=== PATIENT | female | born 1975 | race Hispanic/Latino ===

== ENCOUNTER 2019-04-03 12:17 | Emergency (ER) | payer BC ==
[2019-04-03 12:29] VITALS: BP 147/64
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
[2019-04-03] MEDS ORDERED: ONDANSETRON 4 MG/2 ML INJ IM ONE (15:53)
[2019-04-03] MEDS ORDERED: KETOROLAC 30 MG/1 ML INJ IM ONE (15:53)
== END 2019-04-03 16:23 | disposition home or self-care (01) ==
LOC: ED 12:17
DX: R51 Headache (principal); M79.18 Myalgia, other site; I10 Essential (primary) hypertension; G43.909 Migraine, unspecified, not intractable, without status migrainosus; F32.9 Major depressive disorder, single episode, unspecified
CPT/HCPCS: 70450; 72125; 96372; 99283; J1885; J2405

== ENCOUNTER 2019-04-10 13:58 | Outpatient (CLI) | payer BC ==
--- NOTE | 2019-04-10 17:38 | XRay Report ---
CERVICAL SPINE 3 VIEWS INDICATION / CLINICAL INFORMATION: M54.2 NECK PAIN. COMPARISON: CT dated 04/03/19 FINDINGS: VERTEBRAE: No acute fracture. No significant malalignment. No significant change. DISC SPACES / FACET JOINTS:No significant abnormality. PARASPINAL SOFT TISSUES:No significant abnormality. ADDITIONAL FINDINGS: None. Signer Name: Lee Jackson MD Signed: 04/10/2019 5:34 PM Workstation Name: [id number]
--- NOTE | 2019-04-10 17:39 | XRay Report ---
THORACIC SPINE 2 VIEWS INDICATION / CLINICAL INFORMATION: M54.6 ACUTE MIDLINE THORACIC BACK PAIN. COMPARISON: None available. FINDINGS: VERTEBRAE: No acute fracture. No significant malalignment. DISC SPACES / FACET JOINTS:No significant abnormality. PARASPINAL SOFT TISSUES:No significant abnormality. ADDITIONAL FINDINGS: None. Signer Name: Lee Jackson MD Signed: 04/10/2019 5:35 PM Workstation Name: [id number]
--- NOTE | 2019-04-10 17:40 | XRay Report ---
LUMBAR SPINE 3 VIEWS INDICATION / CLINICAL INFORMATION: M54.5 ACUTE MIDLINE LOW BACK PAIN WITHOUT SCIATICA. COMPARISON: None available. FINDINGS: VERTEBRAE: No acute fracture. No significant malalignment. DISC SPACES / FACET JOINTS:Mild facet arthropathy at L4-5 and L5-S1. PARASPINAL SOFT TISSUES:No significant abnormality. 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 Signer Name: Lee Jackson MD Signed: 04/10/2019 5:35 PM Workstation Name: [id number]
== END 2019-04-10 13:59 | disposition home or self-care (01) ==
LOC: XRAY 13:58
PROVIDERS: ATTEND Internal Medicine
DX: M54.2 Cervicalgia (principal); M54.5 Low back pain; M54.6 Pain in thoracic spine; Z88.8 Allergy status to other drugs, medicaments and biological substances
CPT/HCPCS: 72040; 72070; 72100

== ENCOUNTER 2019-04-15 12:17 | Emergency (ER) | payer BC ==
[2019-04-15 12:28] VITALS: BP 149/64
--- NOTE | 2019-04-15 12:47 | Event Note ---
ED Screening Note ED Screening Note: PMHx migraines takes excedrin, tylenol c/o frontal CALZADA that began this morning +photophobia no vomiting no fever no numbness or weakness This initial assessment/diagnostic orders/clinical plan/treatment(s) is/are subject to change based on patients health status, clinical progression and re-assessment by fellow clinical providers in the ED. Further treatment and workup at subsequent clinical providers discretion. Patient/guardian urged not to elope from the ED as their condition may be serious if not clinically assessed and managed.
[2019-04-15] MEDS ORDERED: KETOROLAC 30 MG/1 ML INJ IV ONE (13:39)
[2019-04-15] MEDS ORDERED: diphenhydrAMINE 50 MG/ML VIAL IV ONE (13:39)
[2019-04-15] MEDS ORDERED: SODIUM CHLORIDE 0.9% 1000 ML 1,000 ML IV ONE (13:39)
[2019-04-15] MEDS ORDERED: METOCLOPRAMIDE 10 MG/2 ML INJ IV ONE (13:39)
--- NOTE | 2019-04-15 14:40 | Emergency Department Report ---
ED Headache HPI - General Chief Complaint: Headache Stated Complaint: MIGRANE Time Seen by Provider: 04/15/19 12:46 - History of Present Illness Initial Comments: This is a 43-year-old female nontoxic, well nourished in appearance, no acute signs of distress presents to the ED with c/o of acute on chronic headache. Patient was seen last week and had a CT scan of head that was within normal limits. Patient describes headache as diffuse with level of 8 out of 10. Patient denies thunderclap headache. Patient denies any radiation of pain. Patient denies any head trauma. Patient denies any visual changes. Patient denies worse headache. Patient stated that darkness makes headache better and bright lights make the headache worse. Patient denies any numbness, tingling, fever, chills, nausea, vomiting, chest pain, shortness of breath, stiff neck. Patient denies facial drooping or one sided weakness. Patient denies any radiation of pain. Patient stated allergies to adhesive tape, oxycodone and lisinopril. Past medical history includes migraine headaches. Timing/Duration: episodic Quality: mild, achy Head Injury Location: other (diffuse) Recent Head Trauma: occasional headaches Associated Symptoms: denies symptoms. denies: confusion, fatigue, facial pain, fever/chills, flushing, loss of consciousness, nausea/vomiting, nasal congestion, nasal drainage, numbness in legs/feet, rash, seizures, sinus infection, stiff neck, vision changes, weakness Allergies/Adverse Reactions: Allergies adhesive tape Allergy (Verified 04/15/19 12:26) Rash oxycodone [From OxyContin] Allergy (Verified 04/15/19 12:26) Unknown lisinopril Adverse Reaction (Verified 04/15/19 12:26) Unknown Home Medications: Ambulatory Orders Ondansetron [Zofran Odt] 4 mg PO Q8HR #12 tab.rapdis 04/03/19 Butalb/Acetaminophen/Caffeine [Fioricet 50-300-40 mg CAP] 1 cap PO Q6HR PRN #12 cap 04/15/19 ED Review of Systems ROS: Stated complaint: MIGRANE Other details as noted in HPI Constitutional: denies: chills, fever Eyes: denies: eye pain, eye discharge, vision change ENT: denies: ear pain, throat pain Respiratory: denies: cough, shortness of breath, wheezing Cardiovascular: denies: chest pain, palpitations Endocrine: no symptoms reported Gastrointestinal: denies: abdominal pain, nausea, diarrhea Genitourinary: denies: urgency, dysuria, discharge Musculoskeletal: denies: back pain, joint swelling, arthralgia Skin: denies: rash, lesions Neurological: headache. denies: weakness, paresthesias Psychiatric: denies: anxiety, depression Hematological/Lymphatic: denies: easy bleeding, easy bruising ED Past Medical Hx - Past Medical History Hx Hypertension: Yes Hx Headaches / Migraines: Yes Hx Psychiatric Treatment: Yes (ANXIETY,DEPRESSION) - Surgical History Hx Appendectomy: Yes Additional Surgical History: Gastric bypass - Social History Smoking Status: Never Smoker Substance Use Type: None - Medications Home Medications: Home Medications Medication Instructions Recorded Confirmed Last Taken Type Ondansetron [Zofran Odt] 4 mg PO Q8HR #12 tab.rapdis 04/03/19 Unknown Rx Butalb/Acetaminophen/Caffeine 1 cap PO Q6HR PRN #12 cap 04/15/19 Unknown Rx [Fioricet 50-300-40 mg CAP] ED Physical Exam - General Limitations: No Limitations General appearance: alert, in no apparent distress - Head Head exam: Present: atraumatic, normocephalic - Eye Eye exam: Present: normal appearance, PERRL, EOMI - Neck Neck exam: Present: normal inspection, full ROM. Absent: tenderness, meningismus, lymphadenopathy - Extremities Exam Extremities exam: Present: normal inspection, full ROM - Back Exam Back exam: Present: normal inspection, full ROM. Absent: tenderness, CVA tenderness (R), CVA tenderness (L), muscle spasm, paraspinal tenderness, vertebral tenderness, rash noted - Neurological Exam Neurological exam: Present: alert, oriented X3, normal gait - Expanded Neurological Exam Expanded Patient oriented to: Present: person, place, time Cranial nerves: EOM's Intact: Normal, Facial Sensation: Normal Cerebellar function: Finger to Nose: Normal Upper motor neuron: Sensory Extinction: Normal Motor strength exam: RUE: 5, LUE: 5, RLE: 5, LLE: 5 Best Eye Response ([place]): (4) open spontaneously Best Motor Response ([place]): (6) obeys commands Best Verbal Response ([place]): (5) oriented [place] Total: 15 - Psychiatric Psychiatric exam: Present: normal affect, normal mood - Skin Skin exam: Present: warm, dry, intact, normal color. Absent: rash ED Course Vital Signs 04/15/19 12:27 Temperature 97.7 F Pulse Rate 63 Respiratory 19 Rate Blood Pressure 149/64 O2 Sat by Pulse 98 Oximetry - Reevaluation(s) Reevaluation #1: 04/15/19 15:02 Patient is speaking in full sentences with no signs of distress noted. ED Medical Decision Making - Medical Decision Making This is a 43-year-old female that presents with migrane headache. Patient is stable and was examined by me. Patient is neurologically stable. There is no stiff neck or neck pain. Vital signs are stable. Patient is afebrile. CT scan has been reviewed from a few weeks ago within normal limits. Patient received Benadryl, Reglan, Toradol, and 1 L of normal saline which the patient stated that headache has subsided and resolved. Patient was instructed not to operate any machinery after discharged due to drowsiness of Benadryl. Patient stated that a family member will drive patient home. Patient is discharged with Fioricet. Patient was referred to Follow-up with a primary care/neurologist doctor in 3-5 days or if symptoms worsen and continue return to emergency room as soon as possible. At time of discharge, the patient does not seem toxic or ill in appearance. No acute signs of distress noted. Patient agrees to discharge treatment plan of care. No further questions noted by the patient. Critical care attestation.: If time is entered above; I have spent that time in minutes in the direct care of this critically ill patient, excluding procedure time. ED Disposition Clinical Impression: Migraine headache Qualifiers: Migraine type: unspecified Status migrainosus presence: without status migrainosus Intractability: not intractable Qualified Code(s): G43.909 - Migraine, unspecified, not intractable, without status migrainosus Disposition: -01 TO HOME OR SELFCARE Is pt being admited?: No Does the pt Need Aspirin: No Condition: Stable Instructions: Migraine Headache (ED), Butalbital/Aspirin/Caffeine (By mouth) Additional Instructions: Follow-up with a primary care doctor in 3-5 days or if symptoms worsen and continue return to emergency room as soon as possible. Prescriptions: Butalb/Acetaminophen/Caffeine [Fioricet 50-300-40 mg CAP] 1 cap PO Q6HR PRN #12 cap PRN Reason: Headache Referrals: PRIMARY CARE, [Referring] - 3-5 Days LEXY GAMBLE MD [Staff Physician] - 3-5 Days [facility] [Outside] - 3-5 Days [facility] [Outside] - 3-5 Days Forms: Work/School Release Form(ED)
== END 2019-04-15 15:41 | disposition home or self-care (01) ==
LOC: ED 12:17
DX: G43.909 Migraine, unspecified, not intractable, without status migrainosus (principal); I10 Essential (primary) hypertension; F32.9 Major depressive disorder, single episode, unspecified; F41.9 Anxiety disorder, unspecified; Z98.84 Bariatric surgery status; Z79.899 Other long term (current) drug therapy; Z88.8 Allergy status to other drugs, medicaments and biological substances; Z88.5 Allergy status to narcotic agent
CPT/HCPCS: 96374; 96375; 99282; J1200; J1885; J2765; J7030

== ENCOUNTER 2019-06-30 14:57 | Emergency (ER) | payer BC ==
[2019-06-30 15:20] VITALS: BP 148/78
[2019-06-30] MEDS ORDERED: KETOROLAC 30 MG/1 ML INJ IV ONE (15:40)
[2019-06-30] MEDS ORDERED: diphenhydrAMINE 50 MG/ML VIAL IV ONE (15:40)
[2019-06-30] MEDS ORDERED: METOCLOPRAMIDE 10 MG/2 ML INJ IV ONE (15:40)
[2019-06-30] MEDS ORDERED: SODIUM CHLORIDE 0.9% 1000 ML 1,000 ML IV ONE (15:41)
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
== END 2019-06-30 17:08 | disposition home or self-care (01) ==
LOC: ED 14:57
DX: G43.909 Migraine, unspecified, not intractable, without status migrainosus (principal); I10 Essential (primary) hypertension; Z90.49 Acquired absence of other specified parts of digestive tract; Z98.84 Bariatric surgery status; Z79.899 Other long term (current) drug therapy; Z88.8 Allergy status to other drugs, medicaments and biological substances
CPT/HCPCS: 96374; 96375; 99282; J1200; J1885; J2765; J7030

== ENCOUNTER 2019-09-19 11:12 | Emergency (ER) | payer BC ==
--- NOTE | 2019-09-19 11:33 | Emergency Department Report ---
- General Chief Complaint: Dyspnea/Respdistress Stated Complaint: SOB/COUGH Time Seen by Provider: 09/19/19 11:21 Source: patient Mode of arrival: Ambulatory Limitations: No Limitations - History of Present Illness Initial Comments: 44-year-old female with a past medical history of previous hypertension not improved after gastric bypass presents to the hospital complaining of cough and infectious symptoms x2 months. In June patient had flulike symptoms but was flu negative suspect she might have COVID at that time. Patient is an employee here. Patient has never been tested for Kovic. Since June her cough has persisted. Cough is dry with intermittent sweats but no documented fever. Patient having dyspnea with exertion and states upon arrival to the hospital t smiley her saturation was 85% after exertional activity. Patient has not noticed any audible wheezing he denies history of asthma or chronic respiratory disease PMD: Dr. kinney - Related Data Previous Rx's Medication Instructions Recorded Last Taken Type Butalb/Acetaminophen/Caffeine 1 cap PO Q6HR PRN #20 cap 06/30/19 Unknown Rx [Fioricet 50-300-40 mg CAP] Ondansetron [Zofran ODT TAB] 4 mg PO Q8HR #20 tab.rapdis 06/30/19 Unknown Rx Azithromycin [Zithromax TAB] 1 dose PO QDAY 5 Days tablet 09/19/19 Unknown Rx Benzonatate [Tessalon Perles] 100 mg PO Q8HR PRN #20 capsule 09/19/19 Unknown Rx Prednisone [predniSONE 10 mg 10 mg PO .TAPER #1 tab.ds.pk 09/19/19 Unknown Rx (6-Day Pack, 21 Tabs)] Allergies Allergy/AdvReac Type Severity Reaction Status Date / Time adhesive tape Allergy Rash Verified 09/19/19 11:13 ketorolac [From Toradol] Allergy Itching Verified 09/19/19 11:13 oxycodone [From OxyContin] Allergy Unknown Verified 09/19/19 11:13 lisinopril AdvReac Unknown Verified 09/19/19 11:13 ED Review of Systems ROS: Stated complaint: SOB/COUGH Other details as noted in HPI Comment: All other systems reviewed and negative ED Past Medical Hx - Past Medical History Hx Hypertension: Yes Hx Headaches / Migraines: Yes Hx Psychiatric Treatment: Yes (ANXIETY,DEPRESSION) - Surgical History Hx Appendectomy: Yes Additional Surgical History: Gastric bypass - Social History Smoking Status: Never Smoker Substance Use Type: None - Medications Home Medications: Home Medications Medication Instructions Recorded Confirmed Last Taken Type Butalb/Acetaminophen/Caffeine 1 cap PO Q6HR PRN #20 cap 06/30/19 Unknown Rx [Fioricet 50-300-40 mg CAP] Ondansetron [Zofran ODT TAB] 4 mg PO Q8HR #20 tab.rapdis 06/30/19 Unknown Rx Azithromycin [Zithromax TAB] 1 dose PO QDAY 5 Days tablet 09/19/19 Unknown Rx Benzonatate [Tessalon Perles] 100 mg PO Q8HR PRN #20 capsule 09/19/19 Unknown Rx Prednisone [predniSONE 10 mg 10 mg PO .TAPER #1 tab.ds.pk 09/19/19 Unknown Rx (6-Day Pack, 21 Tabs)] ED Physical Exam - General Limitations: No Limitations - Other Other exam information: General: No acute distress Head: Atraumatic Eyes: normal appearance ENT: Moist mucous membranes Neck: Normal appearance, no midline tenderness Chest: Clear to auscultation bilaterally, frequent dry cough, no tachypnea (patient not breathing at a rate of 32) or accessory muscle use CV: Regular rate and rhythm Abdomen: Soft, normal bowel sounds, nontender, nondistended, no rebound or guarding Back: Normal inspection Extremity: Normal inspection, full range of motion Neuro: Alert O x 3, no facial asymmetry, speech clear, no gross motor sensory deficit Psych: Appropriate behavior Skin: No rash ED Course Vital Signs 09/19/19 09/19/19 09/19/19 11:13 12:03 13:20 Temperature 98.2 F 98.1 F Pulse Rate 85 64 Pulse Rate [ 60 Anterior Bilateral Throughout] Respiratory 32 H 12 Rate Respiratory 20 Rate [Anterior Bilateral Throughout] Blood Pressure 161/62 Blood Pressure 132/92 [Right] O2 Sat by Pulse 100 Oximetry - Reevaluation(s) Reevaluation #1: 09/19/19 13:41 pt peak flow 200 given duo neb x 1 pt reported to feel much better and peak flow incr to 250. ED Medical Decision Making - Radiology Data Radiology results: report reviewed CHEST 1 VIEW 09/19/2019 12:04 PM INDICATION / CLINICAL INFORMATION: cough, sob possible fever. COMPARISON: None available. FINDINGS: SUPPORT DEVICES: None. HEART / MEDIASTINUM: No significant abnormality. LUNGS / PLEURA: No significant pulmonary or pleural abnormality. No pneumothorax. ADDITIONAL FINDINGS: No significant additional findings. IMPRESSION: 1. No acute findings - Medical Decision Making plan to d/c home with tx for bronchitis with pmd and pulm f/u cxr neg rec outpt coronavirus testing. Patient takes Toradol as needed headache and advised against taking Toradol on a regular basis with prednisone due to the risk of ulcer Patient has home nebs and inhalers can continue treatments at home - Differential Diagnosis Pneumonia, bronchitis Critical Care Time: No Critical care attestation.: If time is entered above; I have spent that time in minutes in the direct care of this critically ill patient, excluding procedure time. ED Disposition Clinical Impression: Acute bronchitis Disposition: - TO HOME OR SELFCARE Is pt being admited?: No Does the pt Need Aspirin: No Condition: Stable Instructions: Acute Bronchitis (ED) Additional Instructions: Take the medication as prescribed. Take albuterol as needed. Please note that taking Toradol and prednisone together can result gastritis and stomach ulcers. Follow-up with your doctor or doctor/clinic provided. Return if symptoms worsen as indicated by your discharge instructions. I encourage you to have outpatient coronavirus testing. Prescriptions: Prednisone [predniSONE 10 mg (6-Day Pack, 21 Tabs)] 10 mg PO .TAPER #1 tab.ds.pk Benzonatate [Tessalon Perles] 100 mg PO Q8HR PRN #20 capsule PRN Reason: Cough Azithromycin [Zithromax TAB] 1 dose PO QDAY 5 Days tablet Referrals: PRIMARY CARE, [Primary Care Provider] - 3-5 Days NICOLE HAGAN MD [Staff Physician] - 3-5 Days (Lung specialist) Time of Disposition: 14:28
[2019-09-19] MEDS: BENZONATATE 100 MG CAP PO ONE (12:02)
--- NOTE | 2019-09-19 12:48 | XRay Report ---
CHEST 1 VIEW 09/19/2019 12:04 PM INDICATION / CLINICAL INFORMATION: cough, sob possible fever. COMPARISON: None available. FINDINGS: SUPPORT DEVICES: None. HEART / MEDIASTINUM: No significant abnormality. LUNGS / PLEURA: No significant pulmonary or pleural abnormality. No pneumothorax. ADDITIONAL FINDINGS: No significant additional findings. IMPRESSION: 1. No acute findings. Signer Name: Lee Jackson MD Signed: 09/19/2019 12:43 PM Workstation Name: [id number]
[2019-09-19] MEDS ORDERED: IPRATROPIUM/ALBUTEROL SULFATE 3 ML AMPUL.NEB IH ONE (13:13)
[2019-09-19] MEDS: IPRATROPIUM/ALBUTEROL SULFATE 3 ML AMPUL.NEB IH ONE (13:20)
[2019-09-19] MEDS: KETOROLAC 10 MG TAB PO ONE (13:40)
[2019-09-19] MEDS: predniSONE 20 MG TAB PO ONE ×2 (14:22→14:26)
[2019-09-19 15:59] VITALS: BP 136/92
[2019-09-19] MEDS ORDERED: IPRATROPIUM/ALBUTEROL SULFATE 3 ML AMPUL.NEB IH SCH (16:00)
== END 2019-09-19 15:30 | disposition home or self-care (01) ==
LOC: ED 11:12
DX: J20.9 Acute bronchitis, unspecified (principal); I10 Essential (primary) hypertension; G43.909 Migraine, unspecified, not intractable, without status migrainosus; F41.9 Anxiety disorder, unspecified; F32.9 Major depressive disorder, single episode, unspecified; Z90.49 Acquired absence of other specified parts of digestive tract; Z98.890 Other specified postprocedural states; Z79.899 Other long term (current) drug therapy; Z88.8 Allergy status to other drugs, medicaments and biological substances
CPT/HCPCS: 71045; 94640; 99283; J7512; 94644

== ENCOUNTER 2020-02-14 09:46 | Emergency (ER) | payer BC, OTHER ==
[2020-02-14 09:52] VITALS: BP 142/83
[2020-02-14] MEDS ORDERED: KETOROLAC 30 MG/1 ML INJ IV ONE (10:27)
[2020-02-14] MEDS ORDERED: diphenhydrAMINE 50 MG/ML VIAL IV ONE (10:27)
[2020-02-14] MEDS ORDERED: METOCLOPRAMIDE 10 MG/2 ML INJ IV ONE (10:27)
--- NOTE | 2020-02-14 10:41 | Emergency Department Report ---
ED Headache HPI - General Chief Complaint: Headache Stated Complaint: MIGRAINE Time Seen by Provider: 02/14/20 10:11 - History of Present Illness Initial Comments: Patient is a 44-year-old female presents emergency room with complaints of a migraine headache that began this morning. She states that she typically takes Toradol and Phenergan for her migraines. She states that the headache is frontal and she has associated nausea and photophobia. She denies any fever, vomiting, diarrhea, fall, injury, hitting her head, vision changes, numbness, weakness. She states that this migraine feels similar to her previous migraine s. She denies any other past medical history. She has an allergy to Percocet, latex, lisinopril. She states that when she gets IM Toradol she gets itching but otherwise is able to take Toradol without any reaction. Allergies/Adverse Reactions: Allergies adhesive tape Allergy (Verified 12/28/19 07:57) Rash ketorolac [From Toradol] Allergy (Verified 12/28/19 07:57) Itching oxycodone [From OxyContin] Allergy (Verified 12/28/19 07:57) Unknown lisinopril Adverse Reaction (Verified 12/28/19 07:57) Unknown Home Medications: Ambulatory Orders Butalb/Acetaminophen/Caffeine [Fioricet 50-300-40 mg CAP] 1 cap PO Q6HR PRN #20 cap 06/30/19 Ondansetron [Zofran ODT TAB] 4 mg PO Q8HR #20 tab.rapdis 06/30/19 Azithromycin [Zithromax TAB] 1 dose PO QDAY 5 Days tablet 09/19/19 Benzonatate [Tessalon Perles] 100 mg PO Q8HR PRN #20 capsule 09/19/19 Prednisone [predniSONE 10 mg (6-Day Pack, 21 Tabs)] 10 mg PO .TAPER #1 tab.ds.pk 09/19/19 Ondansetron [Zofran Odt] 4 mg PO Q8HR #12 tab.rapdis 12/28/19 Ketorolac [Toradol] 10 mg PO Q6H PRN #10 tablet 02/14/20 Promethazine [Phenergan] 25 mg PO Q8HR PRN #10 tab 02/14/20 ED Review of Systems ROS: Stated complaint: MIGRAINE Other details as noted in HPI Comment: All other systems reviewed and negative ED Past Medical Hx - Past Medical History Previous Medical History?: Yes Hx Hypertension: Yes Hx Headaches / Migraines: Yes Hx Psychiatric Treatment: Yes (ANXIETY,DEPRESSION) - Surgical History Past Surgical History?: Yes Hx Appendectomy: Yes Additional Surgical History: Gastric bypass - Social History Smoking Status: Never Smoker Substance Use Type: None - Medications Home Medications: Home Medications Medication Instructions Recorded Confirmed Last Taken Type Butalb/Acetaminophen/Caffeine 1 cap PO Q6HR PRN #20 cap 06/30/19 Unknown Rx [Fioricet 50-300-40 mg CAP] Ondansetron [Zofran ODT TAB] 4 mg PO Q8HR #20 tab.rapdis 06/30/19 Unknown Rx Azithromycin [Zithromax TAB] 1 dose PO QDAY 5 Days tablet 09/19/19 Unknown Rx Benzonatate [Tessalon Perles] 100 mg PO Q8HR PRN #20 capsule 09/19/19 Unknown Rx Prednisone [predniSONE 10 mg 10 mg PO .TAPER #1 tab.ds.pk 09/19/19 Unknown Rx (6-Day Pack, 21 Tabs)] Ondansetron [Zofran Odt] 4 mg PO Q8HR #12 tab.rapdis 12/28/19 Unknown Rx Ketorolac [Toradol] 10 mg PO Q6H PRN #10 tablet 02/14/20 Unknown Rx Promethazine [Phenergan] 25 mg PO Q8HR PRN #10 tab 02/14/20 Unknown Rx ED Physical Exam - General Limitations: No Limitations General appearance: alert, in no apparent distress - Head Head exam: Present: atraumatic, normocephalic - Eye Eye exam: Present: normal appearance, PERRL, EOMI. Absent: conjunctival injection, nystagmus, periorbital swelling, periorbital tenderness Pupils: Present: normal accommodation - ENT ENT exam: Present: mucous membranes moist - Neck Neck exam: Present: full ROM. Absent: meningismus - Respiratory Respiratory exam: Present: normal lung sounds bilaterally. Absent: respiratory distress, wheezes, rales, rhonchi, stridor, chest wall tenderness, accessory muscle use, decreased breath sounds, prolonged expiratory - Cardiovascular Cardiovascular Exam: Present: regular rate, normal rhythm, normal heart sounds. Absent: systolic murmur, diastolic murmur, rubs, gallop - Neurological Exam Neurological exam: Present: alert, oriented X3, CN II-XII intact, normal gait, other (normal finger to nose, normal heel to cortez, 5/5 muscle strength in the BUE/BLE, sensation intact throughout, no focal neuro deficit). Absent: motor sensory deficit - Psychiatric Psychiatric exam: Present: normal affect, normal mood - Skin Skin exam: Present: warm, dry, intact ED Course Vital Signs 02/14/20 09:50 Temperature 98.3 F Pulse Rate 79 Respiratory 18 Rate Blood Pressure 142/83 O2 Sat by Pulse 98 Oximetry ED Medical Decision Making - Medical Decision Making Patient is a 44-year-old female presents emergency room with complaints of a migraine headache that began this morning. She states that she typically takes Toradol and Phenergan for her migraines. She states that the headache is frontal and she has associated nausea and photophobia. She denies any fever, vomiting, diarrhea, fall, injury, hitting her head, vision changes, numbness, weakness. She states that this migraine feels similar to her previous migraines. She denies any other past medical history. She has an allergy to Percocet, latex, lisinopril. She states that when she gets IM Toradol she gets itching but otherwise is able to take Toradol without any reaction. vitals are normal. no neuro deficits on exam. pt given IV toradol, reglan, benadryl. after medications, headache improved and pt was feeling better and ready to go home. pt given prescription for toradol and phenergan. advised pt please take medication as prescribed as needed. Please follow-up with a primary care doctor. Return to emergency room for any new or worsening symptoms. - Differential Diagnosis migraine, tension CALZADA, cluster CALZADA, sinusitis Critical care attestation.: If time is entered above; I have spent that time in minutes in the direct care of this critically ill patient, excluding procedure time. ED Disposition Clinical Impression: Migraine headache Qualifiers: Migraine type: unspecified Status migrainosus presence: without status migrainosus Intractability: not intractable Qualified Code(s): G43.909 - Migraine, unspecified, not intractable, without status migrainosus Disposition: - TO HOME OR SELFCARE Is pt being admited?: No Does the pt Need Aspirin: No Condition: Stable Instructions: Migraine Headache (ED) Additional Instructions: Please take medication as prescribed as needed. Please follow-up with a primary care doctor. Return to emergency room for any new or worsening symptoms. Prescriptions: Promethazine [Phenergan] 25 mg PO Q8HR PRN #10 tab PRN Reason: Nausea Ketorolac [Toradol] 10 mg PO Q6H PRN #10 tablet PRN Reason: headache Referrals: [facility] DAJA MCELROY MD [Primary Care Provider] - 2-3 Days SAEED COLORADO MD [Staff Physician] - 2-3 Days Time of Disposition: 12:16 Print Language: CHINESE
== END 2020-02-14 12:25 | disposition home or self-care (01) ==
LOC: ED 09:46
DX: G43.909 Migraine, unspecified, not intractable, without status migrainosus (principal); I10 Essential (primary) hypertension; F41.9 Anxiety disorder, unspecified; F32.9 Major depressive disorder, single episode, unspecified; Z90.49 Acquired absence of other specified parts of digestive tract; Z79.899 Other long term (current) drug therapy; Z88.8 Allergy status to other drugs, medicaments and biological substances
CPT/HCPCS: 96374; 96375; 99282; J1200; J1885; J2765